=== PATIENT | male | born 1950 | race Caucasian/White ===

== ENCOUNTER → 2018-05-09 | Outpatient (CLI) | payer OTHER | END | disposition home or self-care (01) | LOC: CFH 10:36 | DX: Z12.2 Encounter for screening for malignant neoplasm of respiratory organs (principal); I70.0 Atherosclerosis of aorta; Z72.0 Tobacco use | CPT/HCPCS: 93978; G0297 ==

== ENCOUNTER → 2018-07-25 | Outpatient (CLI) | payer OTHER ==
[~2018-07-25] MED LIST: REGADENOSON 0.4 MG/5 ML SYRINGE ONE
== END | disposition home or self-care (01) ==
LOC: CFH 06:44
PROVIDERS: ATTEND Internal Medicine Cardiovascular Disease
DX: R06.02 Shortness of breath (principal); C43.20 Malignant melanoma of unspecified ear and external auricular canal; Z87.891 Personal history of nicotine dependence
CPT/HCPCS: 78452; 93017; 93306; A9502; J2785

== ENCOUNTER 2018-09-06 09:03 | Inpatient (IN) | payer OTHER ==
[~2018-09-06] VITALS: Ht 175.3 cm; Wt 116.8 kg
[2018-09-06] MEDS ORDERED: TRAM50TA2 PO (09:28)
[2018-09-06] MEDS ORDERED: OXYC1TAB7 PO (09:28)
[2018-09-06] MEDS ORDERED: ALLO300T PO (09:28)
[2018-09-06] MEDS ORDERED: ASPI-496 PO (09:28)
[2018-09-06] MEDS ORDERED: ROSU10TA PO (09:28)
[2018-09-06] MEDS ORDERED: HYDROmorphone 2 MG/ML, 1ML ONE ×3 (09:54→13:41)
[2018-09-06] MEDS ORDERED: ONDANSETRON 2MG/ML, 2ML ONE (09:54)
[2018-09-06] MEDS: HYDROmorphone 1 MG/ML, 1ML IVPush PRN ×2 (09:58→12:12)
[2018-09-06] MEDS ORDERED: ONDANSETRON 2MG/ML, 2ML IVPush ONE (10:00)
[2018-09-06 10:30] LABS: MEAN CORPUSCULAR HGB CONC 33.2 g/dL (33.2-36.2); MEAN CORPUSCULAR VOLUME 87.5 fL (81-97); PLATELET COUNT 364 x10^3/uL (130-400); RED BLOOD COUNT 4.34 x10^6/uL (4.38-5.82); RED CELL DISTRIBUTION WIDTH 14.1 % (9.4-14.8)
[2018-09-06 10:36] LABS: ALBUMIN 2.5 g/dL (3.4-5.0); ANION GAP 10 mmol/L (5-15); CALCIUM 8.4 mg/dL (8.5-10.1); CHLORIDE 105 mmol/L (98-107); CREATININE 0.69 mg/dL (0.7-1.3)
[2018-09-06 10:57] LABS: BASOPHILS # (AUTO) 0.06 x10^3/uL (0-0.1); BASOPHILS % (AUTO) 0 % (0-1); EOSINOPHILS # (AUTO) 0.24 x10^3/uL (0-0.4); EOSINOPHILS % (AUTO) 2 % (1-7); LYMPHOCYTES # (AUTO) 1.46 x10^3/uL (1-3.4); LYMPHOCYTES % (AUTO) 9 % (22-44); MD SCAN; MONOCYTES # (AUTO) 0.69 x10^3/uL (0.2-0.8); MONOCYTES % (AUTO) 4 % (2-9); NEUTROPHILS # (AUTO) 13.47 x10^3/uL (1.8-6.8); NEUTROPHILS % (AUTO) 85 % (42-75)
[2018-09-06] MEDS ORDERED: PIPERACILLIN/TAZO/PMX 3.375GM 50 ML IV ONE (11:00)
[2018-09-06] MEDS ORDERED: VANCOMYCIN PER PHARMACY MC PRN ×2 (11:00→15:30)
[2018-09-06] MEDS ORDERED: PLEASE ENTER ALLERGIES MC SCH (11:00)
[2018-09-06] MEDS ORDERED: PIPERACILLIN/TAZO/PMX 3.375GM 50 ML ONE (11:07)
[2018-09-06] MEDS ORDERED: VANCOMYCIN 2,000 MG in SODIUM CHLORIDE 0.9% 500 ML IV ONE (11:30)
[2018-09-06] MEDS: HYDROmorphone 2 MG/ML, 1ML IVPush PRN ×2 (13:44→15:32)
[2018-09-06] MEDS ORDERED: HYDROmorphone 1 MG/ML, 1ML IVPush PRN (14:00)
[2018-09-06] MEDS ORDERED: SODIUM CHLORIDE FLUSH 10ML SYR IVF PRN (14:00)
[2018-09-06] MEDS ORDERED: ONDANSETRON 2MG/ML, 2ML IVPush PRN ×2 (14:00→15:30)
[2018-09-06] MEDS ORDERED: SODIUM CHLORIDE 0.9% 1,000 ML IV SCH (15:11)
[2018-09-06] MEDS ORDERED: GABAPENTIN 300 MG CAPSULE PO PRN (15:30)
[2018-09-06] MEDS ORDERED: ONDANSETRON ODT 4 MG PO PRN (15:30)
[2018-09-06] MEDS ORDERED: PROMETHAZINE 25 MG/ML, 1ML IM PRN (15:30)
[2018-09-06] MEDS ORDERED: ACETAMINOPHEN 325 MG TABLET PO PRN (15:30)
[2018-09-06] MEDS ORDERED: morphine SULFATE 10 MG/ML, 1ML IVPush PRN (15:30)
[2018-09-06] MEDS ORDERED: BISACODYL 10 MG SUPP PR PRN (15:30)
[2018-09-06] MEDS ORDERED: LABETALOL 5MG/ML, 20ML IVPush PRN (15:30)
[2018-09-06] MEDS ORDERED: hydrALAzine 20 MG/ML, 1ML IVPush PRN (15:30)
[2018-09-06 15:48] LABS: HEMOGLOBIN A1C 5.2 % (4.2-6.3)
[2018-09-06 15:50] LABS: FREE T4 (FREE THYROXINE) 1.33 ng/dL (0.76-1.46); THYROID STIMULATING HORMONE 2.19 mIU/L (0.358-3.740)
[2018-09-06] MEDS ORDERED: FLUT1DIS3 INH (16:23)
[2018-09-06] MEDS ORDERED: PHARMACOKINETIC CONSULTATION MC ONE (16:30)
[2018-09-06] MEDS ORDERED: PHARMACOKINETIC MONITORING MC PRN (16:30)
[2018-09-06] MEDS: OXYcodone/APAP 5/325MG TABLET PO PRN ×2 (16:31→22:38)
[2018-09-06 16:41] LABS: HCT (SEDRATE) 37.9 % (39.2-51.8)
[2018-09-06 19:08] VITALS: BP 92/53
[2018-09-06] MEDS: ERTAPENEM 1 GM in SODIUM CHLORIDE 0.9% 50 ML IV SCH (19:59)
[2018-09-06] MEDS: ASPIRIN 81 MG TABLET EC PO SCH (21:00)
[2018-09-06] MEDS: ATORVASTATIN 20 MG TABLET PO SCH (21:00)
[2018-09-06 21:25] LABS: CULTURE INDICATED? NO; MICROSCOPIC NOT IND
[2018-09-06] MEDS: HEPARIN 5,000 UNITS/ML, 1ML SQ SCH (22:36)
[2018-09-07 02:03] VITALS: BP 92/52
[2018-09-07] MEDS: OXYcodone/APAP 5/325MG TABLET PO PRN ×4 (05:48→18:34)
[2018-09-07 05:50] LABS: ALBUMIN 1.9 g/dL (3.4-5.0); ANION GAP 9 mmol/L (5-15); CALCIUM 8.1 mg/dL (8.5-10.1); CHLORIDE 108 mmol/L (98-107)
[2018-09-07 05:54] LABS: ALANINE AMINOTRANSFERASE 15 U/L (12-78); ALKALINE PHOSPHATASE 74 U/L (45-117); BILIRUBIN,TOTAL 0.4 mg/dL (0.2-1.0); CHOL/HDL RATIO 4.7; CHOLESTEROL, TOTAL 117 mg/dL (140-239); CREATININE 0.63 mg/dL (0.7-1.3); HDL CHOL % 21 % (26-37); HDL CHOLESTEROL (DIRECT) 25 mg/dL (40-60); LDL CHOLESTEROL,CALCULATED 73 mg/dL (54-169); LDL/HDL RATIO 2.9 (0.5-3.0); TRIGLYCERIDES 96 mg/dL (50-200); VLDL CHOLESTEROL 19 mg/dL (0-25)
[2018-09-07] MEDS: HEPARIN 5,000 UNITS/ML, 1ML SQ SCH ×3 (06:31→23:19)
[2018-09-07 07:43] LABS: BASOPHILS # (AUTO) 0.08 x10^3/uL (0-0.1); BASOPHILS % (AUTO) 1 % (0-1); EOSINOPHILS # (AUTO) 0.56 x10^3/uL (0-0.4); EOSINOPHILS % (AUTO) 5 % (1-7); LYMPHOCYTES # (AUTO) 1.26 x10^3/uL (1-3.4); LYMPHOCYTES % (AUTO) 10 % (22-44); MD SCAN; MEAN CORPUSCULAR HEMOGLOBIN 29.5 pg (27.5-34.5); MEAN CORPUSCULAR HGB CONC 33.7 g/dL (33.2-36.2); MEAN CORPUSCULAR VOLUME 87.5 fL (81-97); MONOCYTES # (AUTO) 1.02 x10^3/uL (0.2-0.8); MONOCYTES % (AUTO) 8 % (2-9); NEUTROPHILS # (AUTO) 9.19 x10^3/uL (1.8-6.8); NEUTROPHILS % (AUTO) 76 % (42-75); PLATELET COUNT 374 x10^3/uL (130-400); RED BLOOD COUNT 3.89 x10^6/uL (4.38-5.82); RED CELL DISTRIBUTION WIDTH 14.7 % (9.4-14.8)
[2018-09-07] MEDS: ALLOPURINOL 300 MG TABLET PO SCH (08:23)
[2018-09-07] MEDS: ASPIRIN 81 MG TABLET EC PO SCH ×2 (08:24→21:18)
[2018-09-07] MEDS: OXYcodone/APAP 5/325MG TABLET PO SCH (08:24)
[2018-09-07] MEDS: SENNA/DOCUSATE TABLET PO SCH (08:24)
[2018-09-07 08:29] VITALS: BP 104/50
[2018-09-07] MEDS: VANCOMYCIN 2,000 MG in SODIUM CHLORIDE 0.9% 500 ML IV SCH (10:47)
[2018-09-07] MEDS: OxyconTIN ER 10 MG TAB.ER PO SCH ×2 (12:17→23:19)
[2018-09-07] MEDS ORDERED: HYDROmorphone 2MG TABLET PO PRN (12:30)
[2018-09-07] MEDS: SODIUM CHLORIDE 0.9% 1,000 ML IV SCH ×2 (14:30→21:22)
[2018-09-07 15:37] VITALS: BP 104/56
[2018-09-07] MEDS: GABAPENTIN 300 MG CAPSULE PO SCH ×2 (15:41→21:19)
[2018-09-07 18:30] VITALS: BP 110/67
[2018-09-07] MEDS: ERTAPENEM 1 GM in SODIUM CHLORIDE 0.9% 50 ML IV SCH (20:01)
[2018-09-07] MEDS: ATORVASTATIN 20 MG TABLET PO SCH (21:18)
[2018-09-08 02:08] VITALS: BP 108/66
[2018-09-08] MEDS: KETOROLAC 30 MG/1 ML IVPush PRN ×2 (03:46→17:42)
[2018-09-08 05:33] LABS: BASOPHILS # (AUTO) 0.03 x10^3/uL (0-0.1); BASOPHILS % (AUTO) 0 % (0-1); EOSINOPHILS # (AUTO) 0.48 x10^3/uL (0-0.4); EOSINOPHILS % (AUTO) 4 % (1-7); LYMPHOCYTES # (AUTO) 1.45 x10^3/uL (1-3.4); LYMPHOCYTES % (AUTO) 13 % (22-44); MD NO; MEAN CORPUSCULAR HEMOGLOBIN 29.6 pg (27.5-34.5); MEAN CORPUSCULAR VOLUME 87.2 fL (81-97); MEAN PLATELET VOLUME 6.8 fL (7.4-10.4); MONOCYTES # (AUTO) 0.69 x10^3/uL (0.2-0.8); MONOCYTES % (AUTO) 6 % (2-9); NEUTROPHILS % (AUTO) 76 % (42-75); PLATELET COUNT 406 x10^3/uL (130-400); RED BLOOD COUNT 3.74 x10^6/uL (4.38-5.82); RED CELL DISTRIBUTION WIDTH 14.6 % (9.4-14.8)
[2018-09-08 05:43] LABS: ANION GAP 9 mmol/L (5-15); CALCIUM 8.2 mg/dL (8.5-10.1); CHLORIDE 108 mmol/L (98-107)
[2018-09-08 05:44] LABS: CREATININE 0.63 mg/dL (0.7-1.3)
[2018-09-08] MEDS: HEPARIN 5,000 UNITS/ML, 1ML SQ SCH ×3 (06:24→23:06)
[2018-09-08] MEDS: SODIUM CHLORIDE 0.9% 1,000 ML IV SCH ×3 (07:01→19:13)
[2018-09-08 07:30] VITALS: BP 108/65
[2018-09-08] MEDS: OXYcodone/APAP 5/325MG TABLET PO SCH (08:39)
[2018-09-08] MEDS: GABAPENTIN 300 MG CAPSULE PO SCH ×3 (08:51→19:40)
[2018-09-08] MEDS: ASPIRIN 81 MG TABLET EC PO SCH ×2 (08:51→19:40)
[2018-09-08] MEDS: SENNA/DOCUSATE TABLET PO SCH (08:51)
[2018-09-08] MEDS: ALLOPURINOL 300 MG TABLET PO SCH (08:51)
[2018-09-08] MEDS: VANCOMYCIN 2,000 MG in SODIUM CHLORIDE 0.9% 500 ML IV SCH (10:14)
[2018-09-08] MEDS: OXYcodone/APAP 5/325MG TABLET PO PRN ×3 (10:14→21:20)
[2018-09-08] MEDS: OxyconTIN ER 10 MG TAB.ER PO SCH ×2 (11:27→23:06)
[2018-09-08 13:01] VITALS: BP 112/54
[2018-09-08] MEDS: POLYETHYLENE GLYCOL 17 GM PACKET PO PRN (17:42)
[2018-09-08] MEDS: ATORVASTATIN 20 MG TABLET PO SCH (19:40)
[2018-09-08] MEDS: ERTAPENEM 1 GM in SODIUM CHLORIDE 0.9% 50 ML IV SCH (19:40)
[2018-09-08 20:22] VITALS: BP 105/64
[2018-09-09 02:27] VITALS: BP 100/65
[2018-09-09 05:22] LABS: HCT (SEDRATE) 32.7 % (39.2-51.8)
[2018-09-09 05:24] LABS: BASOPHILS # (AUTO) 0.06 x10^3/uL (0-0.1); BASOPHILS % (AUTO) 1 % (0-1); EOSINOPHILS # (AUTO) 0.53 x10^3/uL (0-0.4); EOSINOPHILS % (AUTO) 5 % (1-7); LYMPHOCYTES # (AUTO) 1.71 x10^3/uL (1-3.4); LYMPHOCYTES % (AUTO) 17 % (22-44); MD NO; MEAN CORPUSCULAR HEMOGLOBIN 29.4 pg (27.5-34.5); MEAN CORPUSCULAR HGB CONC 33.9 g/dL (33.2-36.2); MEAN CORPUSCULAR VOLUME 86.7 fL (81-97); MEAN PLATELET VOLUME 6.9 fL (7.4-10.4); MONOCYTES # (AUTO) 0.82 x10^3/uL (0.2-0.8); MONOCYTES % (AUTO) 8 % (2-9); NEUTROPHILS # (AUTO) 6.78 x10^3/uL (1.8-6.8); NEUTROPHILS % (AUTO) 69 % (42-75); PLATELET COUNT 392 x10^3/uL (130-400); RED BLOOD COUNT 3.71 x10^6/uL (4.38-5.82); RED CELL DISTRIBUTION WIDTH 14.6 % (9.4-14.8)
[2018-09-09 05:30] LABS: ANION GAP 8 mmol/L (5-15); CALCIUM 8.2 mg/dL (8.5-10.1); CHLORIDE 109 mmol/L (98-107); CREATININE 0.64 mg/dL (0.7-1.3)
[2018-09-09] MEDS: SODIUM CHLORIDE 0.9% 1,000 ML IV SCH ×2 (06:19→23:11)
[2018-09-09] MEDS: HEPARIN 5,000 UNITS/ML, 1ML SQ SCH ×3 (06:23→23:11)
[2018-09-09] MEDS: OXYcodone/APAP 5/325MG TABLET PO PRN ×4 (06:23→18:52)
[2018-09-09 06:39] VITALS: BP 106/65
[2018-09-09] MEDS: SENNA/DOCUSATE TABLET PO SCH (09:00)
[2018-09-09] MEDS: OXYcodone/APAP 5/325MG TABLET PO SCH (09:00)
[2018-09-09] MEDS: ALLOPURINOL 300 MG TABLET PO SCH (09:18)
[2018-09-09] MEDS: KETOROLAC 30 MG/1 ML IVPush PRN ×3 (09:18→23:09)
[2018-09-09] MEDS: ASPIRIN 81 MG TABLET EC PO SCH ×2 (09:18→19:43)
[2018-09-09] MEDS: GABAPENTIN 300 MG CAPSULE PO SCH ×3 (09:18→23:09)
[2018-09-09] MEDS: OxyconTIN ER 10 MG TAB.ER PO SCH ×2 (11:36→23:08)
[2018-09-09 12:45] VITALS: BP 102/59
[2018-09-09] MEDS: VANCOMYCIN 1,800 MG in SODIUM CHLORIDE 0.9% 250 ML IV SCH (13:22)
[2018-09-09] MEDS: ERTAPENEM 1 GM in SODIUM CHLORIDE 0.9% 50 ML IV SCH (19:33)
[2018-09-09] MEDS: ATORVASTATIN 20 MG TABLET PO SCH (19:43)
[2018-09-09 20:28] VITALS: BP 101/58
[2018-09-10 02:29] VITALS: BP 105/65
[2018-09-10] MEDS: VANCOMYCIN 1,800 MG in SODIUM CHLORIDE 0.9% 250 ML IV SCH (06:25)
[2018-09-10] MEDS: HEPARIN 5,000 UNITS/ML, 1ML SQ SCH ×3 (06:25→23:04)
[2018-09-10] MEDS: OXYcodone/APAP 5/325MG TABLET PO PRN ×4 (06:31→19:17)
[2018-09-10 06:52] VITALS: BP 104/65
[2018-09-10] MEDS: ALLOPURINOL 300 MG TABLET PO SCH (08:42)
[2018-09-10] MEDS: GABAPENTIN 300 MG CAPSULE PO SCH ×3 (08:42→23:04)
[2018-09-10] MEDS: ASPIRIN 81 MG TABLET EC PO SCH ×2 (08:43→19:32)
[2018-09-10] MEDS: SENNA/DOCUSATE TABLET PO SCH (09:00)
[2018-09-10] MEDS: OXYcodone/APAP 5/325MG TABLET PO SCH (09:00)
[2018-09-10] MEDS: KETOROLAC 30 MG/1 ML IVPush PRN ×2 (09:04→23:04)
[2018-09-10] MEDS: SODIUM CHLORIDE 0.9% 1,000 ML IV SCH ×2 (09:30→19:24)
[2018-09-10] MEDS: OxyconTIN ER 10 MG TAB.ER PO SCH ×2 (12:45→23:04)
[2018-09-10 12:50] VITALS: BP 106/63
[2018-09-10] MEDS: ERTAPENEM 1 GM in SODIUM CHLORIDE 0.9% 50 ML IV SCH (19:24)
[2018-09-10] MEDS: ATORVASTATIN 20 MG TABLET PO SCH (19:32)
[2018-09-10 20:27] VITALS: BP 112/67
[2018-09-11] MEDS: VANCOMYCIN 1,800 MG in SODIUM CHLORIDE 0.9% 250 ML IV SCH (01:40)
[2018-09-11] MEDS: OXYcodone/APAP 5/325MG TABLET PO PRN ×4 (01:47→17:45)
[2018-09-11 02:10] VITALS: BP 100/62
[2018-09-11] MEDS: SODIUM CHLORIDE 0.9% 1,000 ML IV SCH ×2 (05:30→15:30)
[2018-09-11] MEDS: POLYETHYLENE GLYCOL 17 GM PACKET PO PRN (06:28)
[2018-09-11] MEDS: HEPARIN 5,000 UNITS/ML, 1ML SQ SCH ×3 (06:28→23:18)
[2018-09-11 06:57] VITALS: BP 102/66
[2018-09-11 08:11] LABS: HCT (SEDRATE) 35.4 % (39.2-51.8)
[2018-09-11] MEDS ORDERED: MULTIVITAMIN PO SCH (09:00)
[2018-09-11] MEDS ORDERED: ADVAIR INH SCH (09:00)
[2018-09-11] MEDS: OXYcodone/APAP 5/325MG TABLET PO SCH (09:00)
[2018-09-11] MEDS: CEFDINIR 300 MG CAPSULE PO SCH ×2 (09:11→20:16)
[2018-09-11] MEDS: LINEZOLID 600 MG TABLET PO SCH ×2 (09:11→20:16)
[2018-09-11] MEDS: GABAPENTIN 300 MG CAPSULE PO SCH ×3 (09:12→20:16)
[2018-09-11] MEDS: ALLOPURINOL 300 MG TABLET PO SCH (09:13)
[2018-09-11] MEDS: ASPIRIN 81 MG TABLET EC PO SCH ×2 (09:13→20:16)
[2018-09-11] MEDS: SENNA/DOCUSATE TABLET PO SCH (09:18)
[2018-09-11] MEDS: OxyconTIN ER 10 MG TAB.ER PO SCH ×2 (11:41→23:17)
[2018-09-11 12:13] VITALS: BP 106/65
[2018-09-11 19:32] VITALS: BP 100/62
[2018-09-11] MEDS: ATORVASTATIN 20 MG TABLET PO SCH (20:16)
[2018-09-12] MEDS: OXYcodone/APAP 5/325MG TABLET PO PRN ×3 (00:33→13:11)
[2018-09-12] MEDS: SODIUM CHLORIDE 0.9% 1,000 ML IV SCH ×2 (01:30→11:30)
[2018-09-12 02:00] VITALS: BP 102/63
[2018-09-12] MEDS: HEPARIN 5,000 UNITS/ML, 1ML SQ SCH (06:26)
[2018-09-12 08:14] VITALS: BP 99/64
[2018-09-12] MEDS: ASPIRIN 81 MG TABLET EC PO SCH (08:23)
[2018-09-12] MEDS: CEFDINIR 300 MG CAPSULE PO SCH (08:23)
[2018-09-12] MEDS: ALLOPURINOL 300 MG TABLET PO SCH (08:24)
[2018-09-12] MEDS: SENNA/DOCUSATE TABLET PO SCH (08:24)
[2018-09-12] MEDS: LINEZOLID 600 MG TABLET PO SCH (08:24)
[2018-09-12] MEDS: GABAPENTIN 300 MG CAPSULE PO SCH (08:24)
[2018-09-12] MEDS: OXYcodone/APAP 5/325MG TABLET PO SCH (08:24)
[2018-09-12] MEDS: POLYETHYLENE GLYCOL 17 GM PACKET PO PRN (08:25)
[2018-09-12] MEDS: OxyconTIN ER 10 MG TAB.ER PO SCH (11:41)
[2018-09-12] MEDS ORDERED: CEFD300C37 PO (12:37)
[2018-09-12] MEDS ORDERED: LINE600T33 PO (12:37)
[2018-09-12] MEDS ORDERED: OXYC-302 PO (12:37)
[2018-09-12] MEDS ORDERED: DOCU-131 PO (12:37)
== END 2018-09-12 14:12 | DRG 603 ==
LOC: ED 12:38 → EDIP 13:40 → 4NOR 15:15 → DCLOUNGE 09-12 13:47
PROVIDERS: ADMIT Internal Medicine; ATTEND Internal Medicine
DX: L03.115 Cellulitis of right lower limb (principal); E87.2 Acidosis; E44.0 Moderate protein-calorie malnutrition; Z68.38 Body mass index [BMI] 38.0-38.9, adult; M10.9 Gout, unspecified; D64.9 Anemia, unspecified; E78.5 Hyperlipidemia, unspecified; G47.30 Sleep apnea, unspecified; I25.10 Atherosclerotic heart disease of native coronary artery without angina pectoris; J45.909 Unspecified asthma, uncomplicated; Z79.82 Long term (current) use of aspirin; Z85.46 Personal history of malignant neoplasm of prostate; Z88.0 Allergy status to penicillin; Z96.651 Presence of right artificial knee joint; Z88.1 Allergy status to other antibiotic agents
CPT/HCPCS: 36415; 80048; 80053; 80061; 80202; 81003; 82040; 83036; 83605; 83735; 84145; 84439; 84443; 85025; 85379; 85651; 86140; 87040; 96374; 96375; 96376; G0378; J1170; J1335; J1644; J1885; J2405; J2543; J3370; J2270; J7030; J7040; J7050

== ENCOUNTER 2019-07-21 13:15 | Outpatient (CLI) | payer MEDICARE, OTHER ==
[~2019-07-21 13:15] MED LIST changes: +ALLO300T PO; +ASPI-496 PO; +CEFD300C37 PO; +DOCU-131 PO; +FLUT1DIS3 INH; +LINE600T15 PO; +OXYC-302 PO; +OXYC1TAB7 PO; -REGADENOSON 0.4 MG/5 ML SYRINGE ONE; +ROSU10TA2 PO; +TRAM50TA2 PO
== END 2019-07-21 23:59 | disposition home or self-care (01) ==
LOC: CFH 13:15
PROVIDERS: ATTEND Internal Medicine Cardiovascular Disease
DX: E78.5 Hyperlipidemia, unspecified (principal)
CPT/HCPCS: 75571

== ENCOUNTER → 2020-04-02 | Outpatient (CLI) | payer MEDICARE ==
[~2020-04-02] MED LIST changes: +ACET-1600 PO; +ALBU18HF INH; +COLC0.6T37 PO; +PANT40TA5 PO
== END | disposition home or self-care (01) ==
LOC: STAR 07:53
PROVIDERS: ATTEND Urology
DX: Z01.818 Encounter for other preprocedural examination (principal); Z11.59 Encounter for screening for other viral diseases; N40.1 Benign prostatic hyperplasia with lower urinary tract symptoms
CPT/HCPCS: 93005; U0001

== ENCOUNTER 2020-04-06 05:30 | Day surgery (SDC) | payer MEDICARE ==
[~2020-04-06] VITALS: Ht 175.3 cm; Wt 112.5 kg
[2020-04-06] MEDS ORDERED: LACTATED RINGERS 1,000 ML IV SCH (06:36)
[2020-04-06] MEDS ORDERED: LIDOCAINE-MPF 1%, 2ML INFIL ONE (07:00)
[2020-04-06] MEDS ORDERED: CHLORHEXIDINE 15 ML UDC MM ONE (07:00)
[2020-04-06] MEDS ORDERED: FENTANYL PF 250 MCG/5ML ONE (07:06)
[2020-04-06 07:12] VITALS: BP 102/63
[2020-04-06] MEDS ORDERED: HALOPERIDOL 5 MG/ML IV PRN (07:30)
[2020-04-06] MEDS ORDERED: hydrALAzine 20 MG/ML, 1ML IV PRN (07:30)
[2020-04-06] MEDS ORDERED: HYDROcodone/APAP 7.5-325MG/15ML UDC PO PRN (07:30)
[2020-04-06] MEDS ORDERED: FENTANYL PF 100 MCG/2ML IV PRN (07:30)
[2020-04-06] MEDS ORDERED: LABETALOL 5MG/ML, 20ML IV PRN (07:30)
[2020-04-06] MEDS ORDERED: MEPERIDINE/PF 25MG/0.5ML IVPush PRN (07:30)
[2020-04-06] MEDS ORDERED: PROMETHAZINE 25 MG/ML, 1ML IVPush PRN (07:30)
[2020-04-06] MEDS ORDERED: HYDROmorphone 1 MG/ML, 1ML INJ IVPush PRN (07:30)
[2020-04-06] MEDS ORDERED: ALBUTEROL SULFATE 2.5 MG/3 ML NPPB PRN (07:30)
[2020-04-06] MEDS ORDERED: EPHEDRINE 50 MG/ML, 1ML ONE (07:32)
[2020-04-06] MEDS ORDERED: OPIUM/BELLADONNA SUPP.RECT 16.2-60 MG ONE (08:07)
[2020-04-06] MEDS ORDERED: CEFAZOLIN 1,000 MG ONE (08:38)
[2020-04-06] MEDS ORDERED: SUCCINYLCHOLINE 20 MG/ML, 10ML ONE (08:38)
[2020-04-06] MEDS ORDERED: ONDANSETRON 2MG/ML, 2ML ONE (08:38)
[2020-04-06] MEDS ORDERED: DEXAMETHASONE 4 MG/ML, 1ML ONE (08:38)
[2020-04-06] MEDS ORDERED: PROPOFOL 10 MG/ML, 20ML ONE (08:38)
[2020-04-06] MEDS ORDERED: NEOSTIGMINE 1 MG/ML, 10ML ONE (08:38)
[2020-04-06] MEDS ORDERED: GLYCOPYRROLATE 0.2MG/1ML, 5ML ONE (08:38)
[2020-04-06] MEDS ORDERED: ROCURONIUM 10MG/ML,5ML ONE (08:38)
[2020-04-06] MEDS ORDERED: HYDROcodone/APAP 7.5-325MG/15ML UDC ONE (09:21)
== END 2020-04-06 11:20 | disposition home or self-care (01) ==
LOC: OUT 05:30
PROVIDERS: ATTEND Urology
DX: N40.1 Benign prostatic hyperplasia with lower urinary tract symptoms (principal); N13.8 Other obstructive and reflux uropathy; C61 Malignant neoplasm of prostate; K21.9 Gastro-esophageal reflux disease without esophagitis; G47.33 Obstructive sleep apnea (adult) (pediatric); J45.998 Other asthma; Z79.899 Other long term (current) drug therapy; Z88.1 Allergy status to other antibiotic agents; Z88.6 Allergy status to analgesic agent; Z91.040 Latex allergy status; Z98.84 Bariatric surgery status
CPT/HCPCS: 52601; 88305; J0330; J0690; J1100; J2405; J2704; J2710; J3010; J7120

== ENCOUNTER → 2020-07-06 | Outpatient (CLI) | payer MEDICARE | END | disposition home or self-care (01) | LOC: RAD 06:32 | PROVIDERS: ATTEND Thoracic Surgery (Cardiothoracic Vascular Surgery) | DX: Z01.818 Encounter for other preprocedural examination (principal); K44.9 Diaphragmatic hernia without obstruction or gangrene; K22.8 Other specified diseases of esophagus; Z98.84 Bariatric surgery status | CPT/HCPCS: 74240 ==

== ENCOUNTER 2020-10-14 11:12 | Emergency (ER) | payer MEDICARE ==
[~2020-10-14] VITALS: Ht 175.3 cm; Wt 117.9 kg
[~2020-10-14 11:12] MED LIST changes: -PANT40TA5 PO; +PANT40TA6 PO
[2020-10-14 12:20] LABS: BASOPHILS % (AUTO) 0 % (0-1); EOSINOPHILS % (AUTO) 0 % (1-7); LYMPHOCYTES % (AUTO) 6 % (22-44); MEAN CORPUSCULAR HEMOGLOBIN 29.1 pg (27.5-34.5); MEAN CORPUSCULAR HGB CONC 34.3 g/dL (33.2-36.2); MEAN PLATELET VOLUME 7.2 fL (7.4-10.4); MONOCYTES % (AUTO) 3 % (2-9); NEUTROPHILS % (AUTO) 91 % (42-75); PLATELET COUNT 240 x10^3/uL (130-400); RED BLOOD COUNT 5.52 x10^6/uL (4.38-5.82)
--- NOTE | 2020-10-14 12:30 | NUR ---
PT HAS BEEN HAVING COVID SYMPTOMS FOR ABOUT 8 DAYS INCLUDING HANSON, NAUSEA, DIARRHEA THAT HAS RESOLVED FOR 3 DAYS, AND COUGH. PT AND TESTED POSITIVE FOR COVID AT [facility]. PT REPORTS FEELING TIRED AND SLEEPING A LOT. PT ON MONITOR AND IV STARTED.
[2020-10-14 12:31] LABS: CALCIUM 7.8 mg/dL (8.5-10.1); CHLORIDE 107 mmol/L (98-107)
[2020-10-14 12:36] LABS: D-DIMER (DIC) 0.42 ug/mlFEU (0.00-0.52); PROTIME 10.7 Seconds (9.6-11.5)
--- NOTE | 2020-10-14 12:39 | NUR ---
REPORT RECEIVED FROM XANDER EATON FOR TRANSFER OF PATIENT CARE.
[2020-10-14 12:41] LABS: ALANINE AMINOTRANSFERASE 32 U/L (12-78); ALBUMIN 3.2 g/dL (3.4-5.0); ALKALINE PHOSPHATASE 62 U/L (45-117); ANION GAP 6 mmol/L (5-15); BILIRUBIN,TOTAL 0.4 mg/dL (0.2-1.0); C-REACTIVE PROTEIN, QUANT 1.87 mg/dL (0.02-0.49); CREATININE 0.88 mg/dL (0.7-1.3); TOTAL PROTEIN 7.4 g/dL (6.4-8.2)
[2020-10-14 12:48] LABS: MD SCAN
--- NOTE | 2020-10-14 13:36 | NUR ---
PATIENT RESTING IN GURNEY, CONNECTED TO FOURDRINIER OPERATOR, NO SIGNS OF ACUTE DISTRESS, SIDE RAILS UP X2, CALL LIGHT WITHIN REACH.
--- NOTE | 2020-10-14 14:27 | NUR ---
WATER PROVIDED TO PATIENT, RESTING IN GURNEY, NO SIGNS OF ACUTE DISTRESS, CONNECTED TO ENVIRONMENTAL PROTECTION OFFICER, SIDE RAILS UP X2, CALL LIGHT WITHIN REACH.
--- NOTE | 2020-10-14 14:42 | NUR ---
WATER AND PUDDING PROVIDED TO PATIENT.
--- NOTE | 2020-10-14 14:59 | NUR ---
ER PROVIDER AT BEDSIDE TO DISCUSS POC.
--- NOTE | 2020-10-14 15:20 | NUR ---
SPOKE WITH PHARMACY, ISAEL IS BEING WALKED DOWN NOW.
[2020-10-14] MEDS ORDERED: BAMLANIVIMAB 700 MG in SODIUM CHLORIDE 0.9% 250 ML IV ONE (15:30)
[2020-10-14] MEDS ORDERED: FILTER 0.22 MICRON IV PRN (15:30)
--- NOTE | 2020-10-14 15:31 | NUR ---
BAMLINIVIMAB INFUSION STARTED AT 100 mLs/HR, PATIENT EDUCATED ABOUT SIGNS OF REACTION AND TO PAGE NURSE IF HE STARTS EXPERIENCING ANY S/S OF REACTION. CONNECTED TO PHONOGRAPH CARTRIDGE ASSEMBLER, CALL LIGHT WITHIN REACH.
--- NOTE | 2020-10-14 15:47 | NUR ---
PATIENT TOLERATING INFUSION WELL, VITALS WITHIN NORMAL LIMITS, INFUSION INCREASED FROM 100 mLs/hr TO 270 mLs/hr. PATIENT CONNECTED TO DIABETES CLINICAL MANAGER, CALL LIGHT WITHIN REACH.
--- NOTE | 2020-10-14 16:23 | NUR ---
PATIENT TOLERATING INFUSION WELL, DENIES ANY S/S OF ADVERSE REACTION. CONNECTED TO MANAGING PARTNER, CALL LIGHT WITHIN REACH.
--- NOTE | 2020-10-14 16:40 | NUR ---
INFUSION FINISHED, PATIENT STATES HIS BREATHING FEELS MORE "NORMAL." NO ADVERSE REACTION NOTED, VITALS WITHIN NORMAL LIMITS, CALL LIGHT WITHIN REACH.
--- NOTE | 2020-10-14 17:31 | NUR ---
WARM BLANKET PROVIDED TO PATIENT.
[2020-10-14 17:49] VITALS: BP 118/65
[2020-10-14] MEDS ORDERED: IBUPROFEN 200 MG TABLET ONE (19:07)
--- NOTE | 2020-10-14 19:39 | NUR ---
Patient given discharge instructions and they have confirmed that they understand the instructions. Patient stable and ambulatory with steady gait from ED to friend's vehicle.
== END 2020-10-14 19:40 | disposition home or self-care (01) ==
LOC: ED 11:37
DX: U07.1 COVID-19 (principal); B34.9 Viral infection, unspecified; J06.9 Acute upper respiratory infection, unspecified; R50.9 Fever, unspecified; R06.02 Shortness of breath; E11.9 Type 2 diabetes mellitus without complications
CPT/HCPCS: 36415; 71045; 80053; 82728; 83605; 83615; 84145; 85025; 85049; 85379; 85384; 85610; 85730; 86140; 87040; 87635; 93005; 99285; J7050; M0239; Q0239

== ENCOUNTER → 2021-05-12 | Outpatient (CLI) | payer MEDICARE ==
[~2021-05-12] MED LIST changes: +AZAT50TA9 PO; +CHOL10003 PO; +CYAN100028 PO; +FIBER CHOICE PO; +MULT-167 PO; -OXYC-302 PO; +OXYC1TAB14 PO; +TYLENOL PM PO; +[UNRECOGNIZED DRUG - OTHER] PO
== END | disposition home or self-care (01) ==
LOC: STAR 07:42
PROVIDERS: ATTEND Thoracic Surgery (Cardiothoracic Vascular Surgery)
DX: Z20.822 Contact with and (suspected) exposure to COVID-19 (principal)
CPT/HCPCS: U0003; U0005